=== PATIENT | female | born 1985 | race Caucasian/White ===

== ENCOUNTER → 2020-01-22 16:32 | Outpatient (ROUT) | payer OTHER, MEDICAID, SELFPAY | PROVIDERS: Visit Provider Nurse Practitioner Obstetrics & Gynecology | DX: Z34.90 Encounter for supervision of normal pregnancy, unspecified, unspecified trimester (principal); Z36.85 Encounter for antenatal screening for Streptococcus B; Z3A.36 36 weeks gestation of pregnancy | CPT/HCPCS: 87081; 87147 ==

== ENCOUNTER → 2020-01-29 12:45 | Outpatient (CLI) | payer OTHER, MEDICAID, SELFPAY ==
[2020-01-29 15:48] LABS: Alanine Aminotransferase 86 IU/L (<35); Albumin 3.4 g/dL (3.5-5.0); Albumin Globulin Ratio 1.1 (1.0-2.8); Alkaline Phosphatase 210 U/L (38-126); Aspartate Aminotransferase 46 IU/L (14-36); Bilirubin Total 0.7 mg/dL (0.2-1.3); Bilirubin Unconjugated 0.5 mg/dL (0.0-1.1); Globulin 3.2 g/dL (1.7-4.1); HEMOLYSIS < 15 (0-50); Total Protein 6.6 g/dL (6.3-8.2)
[2020-02-02 19:36] LABS: Chenodeoxycholic Acids 13 umol/L (.); Cholic Acids 54 umol/L (.); Deoxycholic Acids 5.2 umol/L (.); Total Bile Acids 72 umol/L (.); Ursodeoxycholic Acids <0.10 umol/L (.)
== END ==
PROVIDERS: PCP Family Medicine; Referring Provider Nurse Practitioner Obstetrics & Gynecology; Visit Provider Nurse Practitioner Obstetrics & Gynecology
DX: Z34.90 Encounter for supervision of normal pregnancy, unspecified, unspecified trimester (principal); L29.9 Pruritus, unspecified; Z3A.38 38 weeks gestation of pregnancy
CPT/HCPCS: 36415; 80076; 82542

== ENCOUNTER 2020-01-30 18:15 | Inpatient (IN) | payer OTHER, MEDICAID, SELFPAY ==
--- NOTE | 2020-01-30 18:59 | P.HPOB_ITS ---
OB HPI Date/Time Date of admission: 01/30/20 Date Patient Seen: 01/30/20 Time Patient Seen: 18:45 History of Present Condition Chief complaint: : 1 Para: 0 Estimated Date of Delivery: 02/11/20 Estimated Gestational Age (weeks): 38.2 Narrative: Monika Krishna is a 34 year old female G1 P 0 @ [id number] by 7wk US. Presents for induction of labor for intrahepatic cholestasis of . Has had itching since 37 wks. Bile acids from 01/22/20 resulted today @ 145umol/L. Uncomplicated care w/ CNM. Desires low intervention . Partner Slade present and supportive. Indications Indication for induction OB: medical complication History of Present care: good care, initiated at week # (7) and pounds weight gain (28) Dating criteria: based on 1st trimester US only Ultrasounds: normal mid trimester US Obstetrical complications: other (Intrahepatic cholestasis of ) Medical complications: none Preadmission Labs Blood type: A (+) positive -: Antibody screen: negative, GBS status: negative, HBsAG: negative, HIV: negative and RPR/VDLR: negative -: Chlamydia screen: not detected and Gonorrhea screen: not detected -: Rubella: immune HCT: 32.6 HCAB: negative 3 hr GTT: 2 hr (81/111/81) Evaluation Evaluation Baseline heart rate: 145 Variability: Moderate (11-25) monitor accelerations: Present monitor decelerations: Absent Uterine Contraction Intensity: Mild Cervical dilation (cm): 2 Cervical effacement (%): 75 station: -2 [facility] Medical History (Updated 01/30/20 @ 19:09 by Margy Adrian CNM) Depression (Acute) Surgical History (Updated 01/30/20 @ 19:09 by Margy Adrian CNM) History of placement of ear tubes (Acute) Social History (Updated 01/30/20 @ 19:10 by Margy Adrian CNM) marital status: unmarried,living together household members: significant other lives independently: Yes education level: college occupational status: employed current occupational exposures/hazards: No Smoking Status: Never smoker Meds Home Medications and Allergies Home Medications Medication Instructions Recorded Confirmed Type 01/30/20 History ferrous sulfate 01/30/20 History Allergies Allergy/AdvReac Type Severity Reaction Status Date / Time No Known Drug Allergies Allergy Unverified 01/30/20 19:10 Review of Systems Integumentary/Breasts Comments: pruritis, full body without rash Exam Vital Signs (past 8 hours): BP 118/68, [id number], T36.5C Temporal Manual OB Exam: dilated 2, effaced 75% and station -2 Uterus Location (Fundal Height): 36 Presentation: vertex Estimated Weight (lbs): 6 Objective Labs Labs: 01/29/20: AST-46, ALT-86 01/30/20: Total Bile Acids-145.4 Assessment and Plan Assessment and Plan Assessment and Plan narrative: Admit. Counseled on diagnosis of ICP w/ recommendation for immediate IOL. Informed consent obtained. CE performed and Moss balloon catheter placed during speculum exam, inflated w/ 50mL sterile saline. Plan low dose pitocin (max 6mu/min) until balloon is out. The pitocin, per protocol. Continuous EFM. Reassess in 4 hours or sooner, PRN. OB back-up notified of patient admission status, labs and plan of care. Time Spent with Patient Total time spent with greater than 50% in coordination of care (as documented) at patient's floor/unit and/or counseling patient:: 25 - 35 minutes
[2020-01-30 19:34] VITALS: BP 106/57
[2020-01-30 19:41] LABS: Add Manual Diff / Slide Review NO; Basophils Absolute Auto 100 /uL (0-100); Basophils Percent Auto 1.3 % (0-2); Eosinophils Absolute Auto 100 /uL (0-450); Eosinophils Percent Auto 1.3 % (2-4); Hematocrit 37.9 % (36-46); Hemoglobin 13.1 g/dL (12.0-16.0); Lymphocytes Absolute Auto 2200 /uL (1100-4500); Lymphocytes Percent Auto 27.4 % (25-40); Mean Corpuscular HGB Conc 34.5 % (30-36); Mean Corpuscular Hemoglobin 33.6 PG (26-34); Mean Corpuscular Volume 97.3 fL (80-100); Monocytes Absolute Auto 400 /uL (0-900); Monocytes Percent Auto 4.8 % (3-14); Neutrophils Absolute Auto 5200 /uL (1500-7000); Neutrophils Percent Auto 65.2 % (50-75); Platelet Count 269 X10^3/uL (150-400); Red Blood Cell Count 3.89 X10^6/uL (4.0-5.2); Red Cell Distribution Width 13.3 % (11.6-14.8); White Blood Cell Count 7.9 X10^3/uL (4.5-11.0)
[2020-01-30 19:55] LABS: COVID19 -Nasal RAPID Negative (Negative)
[2020-01-30] MEDS: OXYTOCIN PREMIX 30 UNIT/500 ML PLAST..BAG IV (19:57)
[2020-01-30] MEDS: LACTATED RINGERS 1,000 ML 100 ML IV (19:57)
--- NOTE | 2020-01-30 23:56 | PM.OBPNLAB ---
Date/Time Date Patient Seen: 01/30/20 Time Patient Seen: 23:35 Pain Control Pain control: tolerating well Comments: Feeling mild cramping. Denies discomfort. VS: BP110/67, [id number], T37.2C Temporal Pelvic Exam Dilation (cm): 2 Effacement (%): 75 station: -2 Amniotic membrane status: Intact Contractions Contractions on admission: none Monitor mode: External Pitocin rate (mU/min): 3 Contraction frequency (min): 3 Contraction pattern: Regular Contraction intensity: Mild Status status: Category l Heart Rate Baseline: 140 Monitor Accelerations: Present Monitor Decelerations: Absent Monitor Variability: Moderate Assessment and Plan Assessment: induction ongoing Plan: continuous present management Comments: Continue low dose pitocin (max 6mu/min) until Moss balloon comes out. Labor support PRN. Reassess in 4 hours or sooner, PRN.
--- NOTE | 2020-01-31 04:08 | PM.OBPNLAB ---
Date/Time Date Patient Seen: 01/31/20 Time Patient Seen: 03:55 Pain Control Pain control: tolerating well Comments: Remains comfortable w/ mild contractions VS: 126/70, [id number], T36.7C Temporal Pelvic Exam Dilation (cm): 5 Effacement (%): 80 station: -2 Amniotic membrane status: Intact Comments: Moss balloon out @ 0025 Contractions Contractions on admission: none Monitor mode: External Pitocin rate (mU/min): 16 Contraction frequency (min): 2 Contraction duration (min): 1 Contraction pattern: Regular Contraction intensity: Mild Status status: Category l Heart Rate Baseline: 145 Monitor Accelerations: Present Monitor Decelerations: Absent Monitor Variability: Moderate Assessment and Plan Assessment: induction ongoing Plan: continuous present management Comments: Continue pitocin titration to adequate contraction pattern. Labor support PRN. Reassess in 4 hours or sooner, PRN.
[2020-01-31] MEDS: LACTATED RINGERS 1,000 ML 100 ML IV (05:32)
--- NOTE | 2020-01-31 08:27 | PM.OBPNLAB ---
Date/Time Date Patient Seen: 01/31/20 Time Patient Seen: 08:10 Pain Control Pain control: tolerating well Comments: Patient remains comfortable, not breathing through contractions. Initially declined cervical exam, but after counseling is agreeable to exam and AROM if no change. Then desires minimal cervical exams after AROM. VS: 116/59, HR57 Pelvic Exam Dilation (cm): 6 Effacement (%): 80 station: -2 Amniotic membrane status: Ruptured (AROM, moderate clear fluid) Contractions Contractions on admission: none Monitor mode: External Pitocin rate (mU/min): 24 Contraction frequency (min): 2 Contraction duration (min): 1 Contraction pattern: Regular Contraction intensity: Mild Status status: Category l Heart Rate Baseline: 145 Monitor Accelerations: Present Monitor Decelerations: Absent Monitor Variability: Moderate Assessment and Plan Assessment: active labor Plan: continuous present management Comments: Will continue pitocin titration w/ goal to keep ctx Q3-4 minutes. Labor support PRN. Reassess in 4 hours w/ repeat CE in 6 hours.
--- NOTE | 2020-01-31 11:25 | P.PCNOB_ITS ---
Events: Labor Induction (intrahepatic cholestasis of ) Labor & Delivery Delivery date: 01/31/20 Intrapartal events: None Cervical ripening method: per Moss bulb protocol Induction method: per pitocin protocol Delivery augmentation: rupture of membranes Delivery monitor: external FHT and external uterine Route of delivery: L&D Laceration Description: None Estimated blood loss (mL): 200 Anesthesia type: None Narrative: Apparent active labor immediately after AROM. Pitocin was steadily decreased and then turned off. Patient labored well without medication. Coley to feel spontaneous urge to push in the tub and was assisted to bed with immediate noted. Cat I FHR throughout labor. NSVB of a vigorous baby girl in KAYLA position over an intact vagina and perineum. Manual extraction of a compound left hand. No NC and easy delivery of the shoulders. was placed on maternal abdomen for drying and skin to skin. Remaining 30 units of pitocin in 500mL LR was staretd at 300mL/ hr for AMTSL. After cessation of pulsation, the cord was double clamped by CNM and cut by FOB. Hospital cord blood sample was collected to hold. Gentle cord traction and single maternal push led to spontaneous, Schultze delivery of an apparently intact placenta, membranes and 3VC. Fundus immediately firm and bleeding minimal. QBL 200mL. Both mother and baby stable and skin to skin as I left the room. [facility] 1: Infant gender: Female Presentation: vertex Placenta delivery description: Spontaneous cord vessel description: 3 Vessels score (1 min): 9 score (5 min): 9 Narrative: Compound left hand Plan for aftercare: Routine PP orders. Anticipate discharge to home in 24 hours.
[2020-01-31] MEDS: DERMOPLAST SPRAY 20% 60 ML 1 SPRAY TOP (16:10)
[2020-02-01] MEDS: DOCUSATE 100 MG CAPSULE PO (09:39)
--- NOTE | 2020-02-01 10:05 | PM.OBDS.1 ---
Discharge Providers Provider Date of admission: 01/30/20 18:15 Discharge Date: 02/01/20 Primary care physician: Saray Juarez MD Consults: 02/01/20 11:23 Consult to Clinical Field Specialist Routine Comment: Discharge provider: Margy Adrian CNM Summary Discharge Diagnosis (1) Encounter for full-term uncomplicated delivery: Status: Acute Problem Details: Patient ambulating in room, nursing her daughter. Feeling well with no complaints. Tolerating general diet. Voiding and ambulating independently. independently. Minimal vaginal bleeding, no clots. Eager for discharge to home. Time Spent with Patient Time attestation: Total time spent providing and/or coordinating discharge services: Objective Labs Result Diagrams: 01/30/20 19:10 Exam Vital Signs (past 8 hours): BP 106/68, [id number], RR16/min, T98.5F Temporal Other: Fundus firm @ u-1, lochia scant, no clots Discharge Plan Discharge Plan Patient Disposition: Home Discharge orders & Medications Prescriptions: New acetaminophen 325 mg Tablet 650 mg PO Q6HR PRN (Reason: Pain, Mild (1-3)) 14 Days Qty: 100 RF: 0 ibuprofen 600 mg Tablet 600 mg PO Q6HR PRN (Reason: Pain, Mild (1-3)) 14 Days Qty: 60 RF: 0 docusate sodium [DOK] 100 mg Capsule 100 mg PO DAILY 7 Days Qty: 10 RF: 0 Continued tablet 1 tab PO DAILY RF: 0 Discontinued ferrous sulfate tablet 1 tab PO DAILY RF: 0 Follow up/Referrals: Saray Juarez MD [Primary Care Provider] - Diet/Activity/Treatments Diet: Regular Activity: pelvic rest x 6 weeks Skin/Wound/Dressing Care Report to your healthcare provider any signs of infection, such as:: chills, fever, increased pain, unusual drainage and unusual redness Visit Report/Discharge Packet Instructions: DI for Depression Discharge Data Primary Care Provider: Saray Juarez Attending Provider: Margy Adrian Admit Date/Time: 01/30/20 18:15
[2020-02-01 10:25] VITALS: BP 106/68; PULSE 65; RESP 18; TEMP 36.9
== END 2020-02-01 11:28 | disposition home or self-care (01) | DRG 560 ==
PROVIDERS: Admitting Provider Nurse Practitioner Obstetrics & Gynecology; PCP Family Medicine; Referring Provider Nurse Practitioner Obstetrics & Gynecology; Visit Provider Nurse Practitioner Obstetrics & Gynecology
DX: O26.62 Liver and biliary tract disorders in childbirth (principal); K83.1 Obstruction of bile duct; Z3A.38 38 weeks gestation of pregnancy; Z37.0 Single live birth; Z11.59 Encounter for screening for other viral diseases; L29.9 Pruritus, unspecified
CPT/HCPCS: 36415; 59050; 80076; 82542; 85025; 86850; 86900; 86901; 87635; G0378; G0379; J2590

== ENCOUNTER 2023-02-22 14:37 | Emergency (ER) | payer OTHER, SELFPAY ==
[2023-02-22 14:48] VITALS: BP 98/55; PULSE 92; RESP 19; TEMP 36.9; O2SAT 100; BMI 20.7
[2023-02-22] MEDS: ONDANSETRON 4 MG ODT SL (14:57)
--- NOTE | 2023-02-22 16:25 | ED.NAVMDI ---
HPI - Nausea/Vomiting/Diarrhea General Chief complaint: Nausea/Vomiting/Diarrhea Stated complaint: COVID +. NVD Time Seen by Provider: 02/22/23 14:45 Source: patient Mode of arrival: Ambulatory History of Present Illness HPI Narrative: 38-year-old female presents for nausea and vomiting. Tested positive for COVID-19 yesterday. She is concerned because she is afraid that if she vomits 2 months she will not be able to produce breast milk as she is still breast-feeding her child. Related Data Home Medications Medication Instructions Recorded Confirmed 1 tab PO DAILY 01/30/20 01/31/20 Previous Rx's Medication Instructions Recorded ondansetron 4 mg disintegrating 4 mg PO Q8H PRN nausea and 02/22/23 tablet vomiting #30 tabs Allergies Allergy/AdvReac Type Severity Reaction Status Date / Time No Known Drug Allergies Allergy Unverified 01/30/20 19:10 Review of Systems Review of Systems Narrative: Negative except as noted above Patient History Medical History (Updated 02/22/23 @ 16:26 by Sonja Villegas MD) Cholestasis during in third trimester Depression Surgical History (Updated 01/30/20 @ 19:09 by Margy Martínez CNM) History of placement of ear tubes Social History (Updated 01/30/20 @ 19:10 by Margy Martínez CNM) marital status: unmarried,living together household members: significant other lives independently: Yes education level: college occupational status: employed current occupational exposures/hazards: No Smoking Status: Never smoker Smoking Status: Never smoker Substance Use Type: does not use Exam Initial Vital Signs Initial Vital Signs: Vital Signs Temperature 98.5 F 02/22/23 14:48 Pulse Rate 92 H 02/22/23 14:48 Respiratory Rate 19 02/22/23 14:48 Blood Pressure 98/55 L 02/22/23 14:48 Pulse Oximetry 100 02/22/23 14:48 Oxygen Delivery Method Room Air 02/22/23 14:48 Const: Awake, alert, no acute distress, nontoxic appearing Eyes: PERRL, EOMI, conjunctiva normal ENT: Atraumatic, dentition normal, mucous membranes moist Cardiac: regular rate, regular rhythm RESP: unlabored, clear bilaterally, no wheezing GI: Atraumatic, soft, nontender, nondistended, no rebound, no guarding MSK: Atraumatic, full range of motion, pulses equal Skin: Warm, Dry, intact, no rashes Neuro: AO x3, CN II-XII grossly intact, moves all extremities Psych: affect normal, mood normal, not suicidal, not homicidal Course Course Course Narrative: Well-appearing patient with nausea and vomiting after testing positive for COVID-19. She was given sublingual Zofran in triage, subsequently able to drink an entire bottle of water without emesis. Prescription for Zofran sent to pharmacy. Counseled brat diet and importance of p.o. fluids. Orders Ordered: Discontinued Medications Ondansetron HCl (Ondansetron 4 Mg Odt) 4 mg SL NOW PRN PRN Reason: Nausea And Vomiting Last Admin: 02/22/23 14:57 Dose: 4 mg Documented By: DEON Ondansetron HCl (Ondansetron 4 Mg/2 Ml Inj) 4 mg IV NOW PRN PRN Reason: Nausea And Vomiting Vital Signs Vital signs: Vital Signs - 8 hr 02/22/23 14:48 Temperature 98.5 F Pulse Rate 92 H Respiratory Rate 19 Blood Pressure 98/55 L Pulse Oximetry 100 Oxygen Delivery Method Room Air MDM - Nausea/Vomiting/Diarrhea Lab Data Labs: Lab Results 02/22/23 Range/Units 16:00 Urine RBC 0-1/hpf (0-5/HPF) Urine WBC 1-5/hpf (0-5/HPF) Ur Squamous Epith Cells 1-5 /hpf (0-5/HPF) Amorphous Sediment 4+ Urine Bacteria Few (2-10) H (None) Point of Care Testing Test Results Negative Urine Dip Bedside Urine Glucose Negative Bedside Urine Ketone ++ 40 Urine Specific [place] 1.030 Bedside Urine Occult Blood - Negative Bedside Urine pH 6.0 Bedside Urine Protein +/- 15 Bedside Urine Urobilinogen 0.2 Bedside Urine Nitrite - Negative Bedside Urine Leukocytes - Negative Esterase Discharge Plan Departure Patient Disposition: Home Clinical Impression: Vomiting Instructions: DI for Vomiting -- Adult Prescriptions: New ondansetron 4 mg tablet,disintegrating 4 mg PO Q8H PRN (Reason: nausea and vomiting) Qty: 30 0RF No Action tablet 1 tab PO DAILY Referrals: Saray Juarez MD [Primary Care Provider] - Stand Alone Forms: Patient Portal/API
[2023-02-22 16:33] VITALS: BP 106/66; PULSE 88; RESP 20; TEMP 37.1; O2SAT 98
[2023-02-22 16:57] LABS: Amorphous Sediment Urine 4+; Bacteria Urine Few (2-10); RBC Urine 0-1/HPF (0-5/HPF); Squamous Epithelial Cell Urine 1-5 /HPF (0-5/HPF); WBC Urine 1-5/HPF (0-5/HPF)
== END 2023-02-22 16:35 | disposition home or self-care (01) ==
PROVIDERS: Emergency Provider Emergency Medicine; PCP Family Medicine
DX: U07.1 COVID-19 (principal); R11.2 Nausea with vomiting, unspecified
CPT/HCPCS: 81003; 81015; 81025; 87086; 99282; 99283